=== PATIENT | male | born 1980 | race Caucasian/White ===

== ENCOUNTER → 2016-06-08 | Day surgery (SDC) | payer OTHER ==
[~2016-06-08] MED LIST: ACETAMINOPHEN 1000 MG/100 ML VIAL IV ONE; BUPIVACAINE/EPINEPHRINE 0.25% PF 30 ML VIAL ONE; CYCL-36 PO; LACTATED RINGER'S 1000 ML INJ 1,000 ML ONE; MIDAZOLAM HCL 2 MG/2 ML VIAL ONE; ONDANSETRON HCL 4 MG/2 ML VIAL IV PUSH ONE; PROPOFOL 200 MG/20 ML AMP IV ONE; TRAM50 PO; Z.0.NO CURRENT MEDS
--- NOTE | 2016-06-08 16:10 | TN ---
cc: EMERITA ZAMUDIO MD DATE OF SURGERY: 06/08/2016. PREOPERATIVE DIAGNOSIS: A 9 x 8 cm lipoma of upper back. POSTOPERATIVE DIAGNOSIS: A 9 x 8 cm lipoma of upper back. OPERATIVE PROCEDURE PERFORMED: Excision of 9 x 8 cm upper back lipoma. SURGEON Emerita Zamudio MD. PICU NURSE: KATE Valles. ANESTHESIA: General anesthesia via LMA SPECIMEN: Back lipoma 9 cm. COMPLICATIONS: No complications. ESTIMATED BLOOD LOSS: 5 cc. DESCRIPTION OF THE PROCEDURE IN DETAIL: The patient was taken to the operating room and placed in the left lateral position after induction of general anesthesia via LMA. The upper back was prepped and draped in the usual sterile fashion. A surgical time-out was performed to verify correct patient, procedure and site. Local anesthetic was injected overlying the lipoma and a transverse incision created. Electrocautery was used to dissect down to the lipoma. The lipoma was large with multiple lobules and finger s coming out from the lipoma. This was dissected from the surrounding tissues using electrocautery. It was underneath the most superficial muscle. It was divided to gain access to the lipoma. The lipoma was then completely removed and sent to pathology. Hemostasis was achieved in the wound cavity. It was closed in two layers with a deep layer of simple interrupted 3-0 Vicryl suture followed by running subcuticular 4-0 Monocryl. Dermabond was applied. The patient tolerated procedure well, was extubated and taken to the post-anesthesia care unit in stable condition. MD YESENIA Hebert/BRIAN /3:48 PM /3:54 PM
== END | disposition home or self-care (01) ==
LOC: ESDC 11:00
PROVIDERS: ATTEND Surgery
DX: D17.1 Benign lipomatous neoplasm of skin and subcutaneous tissue of trunk (principal)
CPT/HCPCS: 00300; 21931; 88304; J0131; J2250; J2405; J3010; J7120

== ENCOUNTER 2016-11-24 13:45 | Emergency (ER) | payer OTHER ==
[~2016-11-24] VITALS: Ht 190.5 cm; Wt 92.0 kg
[~2016-11-24 13:45] MED LIST changes: -ACETAMINOPHEN 1000 MG/100 ML VIAL IV ONE; -BUPIVACAINE/EPINEPHRINE 0.25% PF 30 ML VIAL ONE; -LACTATED RINGER'S 1000 ML INJ 1,000 ML ONE; -MIDAZOLAM HCL 2 MG/2 ML VIAL ONE; -ONDANSETRON HCL 4 MG/2 ML VIAL IV PUSH ONE; -PROPOFOL 200 MG/20 ML AMP IV ONE
[2016-11-24 13:48] VITALS: BP 186/106; PULSE 61; RESP 18; TEMP 97.4; O2SAT 100
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
[2016-11-24 14:30] VITALS: BP 153/80; PULSE 58; RESP 14; O2SAT 100
[2016-11-24] MEDS ORDERED: TETANUS/DIPHTHERIA TOXOID ADULT 0.5 ML VIAL IM ONE (14:30)
[2016-11-24] MEDS ORDERED: ACETAMINOPHEN/HYDROcodone 325 MG/5 MG TAB PO ONE (15:30)
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
[2016-11-24] MEDS ORDERED: AUGM875T3 PO (16:47)
== END 2016-11-24 16:55 | disposition home or self-care (01) ==
LOC: PHEFT 13:45
DX: S01.511A Laceration without foreign body of lip, initial encounter (principal); R68.84 Jaw pain; W22.8XXA Striking against or struck by other objects, initial encounter; Z23 Encounter for immunization
CPT/HCPCS: 70150; 90471; 90714